=== PATIENT | female | born 1985 | race African-American/Black ===

== ENCOUNTER 2017-06-24 13:34 | Emergency (ER) | payer OTHER ==
[~2017-06-24] VITALS: Ht 167.6 cm; Wt 58.0 kg
[2017-06-24 13:41] VITALS: Ht 167.6 cm; Wt 58.0 kg
[2017-06-24] MEDS ORDERED: ACETAMINOPHEN 325 MG TAB PO STA (15:31)
[2017-06-24 16:13] LABS: BASOPHILS % 0.3 % (0.0-2.0); EOSINOPHILS % 0.5 % (0.0-7.0); HEMATOCRIT 39.1 % (37.0-47.0); HEMOGLOBIN 12.7 g/dl (12.0-16.0); LYMPHOCYTES # 2.3 10^3/ul (0.8-2.9); LYMPHOCYTES % 29.1 % (15.0-51.0); MEAN CORPUSCULAR HEMOGLOBIN 29.3 pg (29.0-33.0); MEAN CORPUSCULAR HGB CONC 32.5 g/dl (32.0-37.0); MEAN CORPUSCULAR VOLUME 90.1 fl (82.0-101.0); MEAN PLATELET VOLUME 12.2 fl (7.4-10.4); MONOCYTE # 0.5 10^3/ul (0.3-0.9); MONOCYTES % 5.8 % (0.0-11.0); NEUTROPHIL # 5.1 10^3/ul (1.6-7.5); NEUTROPHILS % 64.2 % (39.0-77.0); PLATELET COUNT 214 10^3/UL (140-415); RED BLOOD COUNT 4.34 10^6/ul (4.20-5.40); RED CELL DISTRIBUTION WIDTH 12.8 % (11.5-14.5); WHITE BLOOD COUNT 7.9 10^3/ul (4.8-10.8)
[2017-06-24 16:33] LABS: ALBUMIN 4.5 g/dl (3.3-4.9); ALBUMIN/GLOBULIN RATIO 1.12; BILIRUBIN,INDIRECT 0.2 mg/dl (0-1.1); BILIRUBIN,TOTAL 0.2 mg/dl (0.2-1.3); CALCIUM 9.8 mg/dl (8.4-10.2); CREATININE 0.66 mg/dl (0.44-1.00); POTASSIUM 4.6 mmol/L (3.5-5.1); TOTAL PROTEIN 8.5 g/dl (6.1-8.1)
--- NOTE | 2017-06-24 16:47 | RADRPT ---
PROCEDURE: OB Ultrasound. CLINICAL INDICATION: Positive test. Pelvic pain. TECHNIQUE: Ultrasound of the pelvis was performed with transabdominal and transvaginal sonography in the axial and sagittal planes. COMPARISON: No prior study is available for comparison. FINDINGS: There is a single intrauterine gestational sac. pole and yolk sac are present. There is heart motion. heart rate is 132 beats per minute. [place]-rump length is 0.88 cm. Mean sac diameter is 2.22 cm. Menstrual age by ultrasound dates is 7 weeks 0 days. This indicates an expected date of delivery of 02/10/2018. The right ovary is not visualized. The left ovary appears normal measuring 3.5 x 2.4 x 2.6 cm. Color Doppler and pulsed Doppler sonography demonstrate normal flow to the left ovary. An IUD is present in the endometrial canal anteriorly adjacent to the gestational sac. IMPRESSION: 1. Single live intrauterine gestation of 7 weeks 0 days menstrual age by ultrasound dates. 2. Expected date of delivery is 02/10/2018. 3. Right ovary not visualized. 4. IUD in the endometrial canal anteriorly adjacent to the gestational sac. 5. Otherwise unremarkable study. RPTAT: QQ .Jama Hernandez MD, MD Date Time Electronically viewed and signed by .Jama Hernandez MD, on 06/24/2017 16:47 .R/
[2017-06-24 17:18] LABS: ADD UMIC YES; UR ASCORBIC ACID NEGATIVE (NEGATIVE); UR BILIRUBIN (Dip) NEGATIVE (NEGATIVE); UR BLOOD (Dip) NEGATIVE (NEGATIVE); UR CLARITY CLEAR (CLEAR); UR COLOR STRAW (YELLOW); UR GLUCOSE (Dip) NEGATIVE (NEGATIVE); UR KETONES (Dip) NEGATIVE (NEGATIVE); UR LEUKOCYTE ESTERASE (Dip) TRACE Leu/ul (NEGATIVE); UR NITRITE (Dip) NEGATIVE (NEGATIVE); UR RBC 1 /HPF (0-5); UR SPECIFIC GRAVITY (Dip) 1.004 (1.003-1.030); UR TOTAL PROTEIN (Dip) NEGATIVE (NEGATIVE); UR UROBILINOGEN (Dip) NEGATIVE (NEGATIVE)
[2017-06-24] MEDS ORDERED: NITR-58 PO (17:49)
[2017-06-24] MEDS ORDERED: ACET325T33 PO (17:49)
--- NOTE | 2017-06-25 19:41 | ERD ---
ER Documentation Chief Complaint Chief Complaint pt bib family with c/o pelvic pain approx 6 wks preg, pt has IUD HPI Patient is a 31-year-old female who is Ab1 LC 2, last menstrual cycle was May 08, 2017 presenting to the emergency department with complaints of pelvic pain intermittently for the past week. The patient does have an IUD. She has noted vaginal discharge which is clearish in color but no bleeding. Associated symptoms include nausea and back pain. She had an ultrasound approximately 3 days ago which reportedly showed an IUP. She denies any other symptoms currently. ROS All systems reviewed and are negative except as per history of present illness. Medications Home Meds Active Scripts Acetaminophen* (Tylenol*) 325 Mg Tablet, 2 TAB PO Q6 Y for PAIN AND OR ELEVATED TEMP, #20 TAB Prov:NALINI VILLATORO PA-C 06/24/17 Nitrofurantoin Monohyd Macrocr* (Macrobid*) 100 Mg Capsr, 100 MG PO BID for 5 Days, #10 CAP Prov:NALINI VILLATORO PA-C 06/24/17 Allergies Allergies: Coded Allergies: No Known Allergy (Unverified , 06/24/17) PMhx/Soc Medical and Surgical Hx: pt denies Medical Hx, pt denies Surgical Hx Hx Alcohol Use: No Hx Substance Use: No Hx Tobacco Use: No Smoking Status: Never smoker Physical Exam Vitals Vital Signs Date Time Temp Pulse Resp B/P Pulse Ox O2 Delivery O2 Flow Rate FiO2 06/24/17 13:41 98.8 74 16 114/60 100 Physical Exam Const: Nontoxic, well-appearing female in no acute distress Head: Atraumatic Eyes: Normal Conjunctiva ENT: Normal External Ears, Nose and Mouth. Neck: Full range of motion..~ No meningismus. Resp: Clear to auscultation bilaterally Cardio: Regular rate and rhythm, no murmurs Abd: Gravid abdomen, soft, non tender, non distended. Normal bowel sounds. There is mild suprapubic tenderness to palpation noted bilaterally, worse on the right. Skin: No petechiae or rashes Back: No midline or flank tenderness Ext: No cyanosis, or edema Neur: Awake and alert Psych: Normal Mood and Affect Result Diagram: 06/24/17 1600 06/24/17 1600 Results 24 hrs Laboratory Tests Test 06/24/17 16:00 White Blood Count 7.910^3/ul Red Blood Count 4.3410^6/ul Hemoglobin 12.7g/dl Hematocrit 39.1% Mean Corpuscular Volume 90.1fl Mean Corpuscular Hemoglobin 29.3pg Mean Corpuscular Hemoglobin Concent 32.5g/dl Red Cell Distribution Width 12.8% Platelet Count 72611^3/UL Mean Platelet Volume 12.2fl Neutrophils % 64.2% Lymphocytes % 29.1% Monocytes % 5.8% Eosinophils % 0.5% Basophils % 0.3% Nucleated Red Blood Cells % 0.0/100WBC Neutrophils # 5.110^3/ul Lymphocytes # 2.310^3/ul Monocytes # 0.510^3/ul Eosinophils # 0.010^3/ul Basophils # 0.010^3/ul Nucleated Red Blood Cells # 0.010^3/ul Urine Color STRAW Urine Clarity CLEAR Urine pH 6.0 Urine Specific [place] 1.004 Urine Ketones NEGATIVEmg/dL Urine Nitrite NEGATIVEmg/dL Urine Bilirubin NEGATIVEmg/dL Urine Urobilinogen NEGATIVEmg/dL Urine Leukocyte Esterase TRACELeu/ul Urine Microscopic RBC 1/HPF Urine Microscopic WBC 0/HPF Urine Hemoglobin NEGATIVEmg/dL Urine Glucose NEGATIVEmg/dL Urine Total Protein NEGATIVEmg/dl Sodium Level 137mmol/L Potassium Level 4.6mmol/L Chloride Level 104mmol/L Carbon Dioxide Level 23mmol/L Anion Gap 15 Blood Urea Nitrogen 8mg/dl Creatinine 0.66mg/dl Glucose Level 74mg/dl Calcium Level 9.8mg/dl Total Bilirubin 0.2mg/dl Direct Bilirubin 0.00mg/dl Indirect Bilirubin 0.2mg/dl Aspartate Amino Transf (AST/SGOT) 19IU/L Alanine Aminotransferase (ALT/SGPT) 31IU/L Alkaline Phosphatase 52IU/L Total Protein 8.5g/dl Albumin 4.5g/dl Globulin 4.00g/dl Albumin/Globulin Ratio 1.12 Beta HCG, Quantitative 89397.0mIU/ml Current Medications Medications (Trade) Dose Ordered Sig/Elana Route PRN Reason Start Time Stop Time Status Last Admin Dose Admin Acetaminophen (Tylenol Tab) 650 mg ONCE STAT PO 06/24/17 15:31 06/24/17 15:33 DC 06/24/17 15:49 Procedures/MDM 31-year-old female presenting to the emergency department with complaints of suprapubic and pelvic pain. The patient is reportedly 6 weeks currently. The patient is given Tylenol p.o. in the department. She is feeling improved prior to discharge. Laboratory analysis showed no evidence of leukocytosis or anemia on CBC. Chemistry panel showed no significant acute abnormalities. [place] 55692, consistent with term of urinalysis showed trace leukocytes, and urinary tract infection may be a source of the patient's pain. Ultrasound of the pelvis was performed with transabdominal and transvaginal sonography in the axial and sagittal planes which yielded a single live intrauterine gestation of 7 weeks 0 days menstrual age by ultrasound dates. Right ovary not visualized. There was the IUD present in the endometrial canal anteriorly adjacent to the gestational sac, otherwise unremarkable study. After workup in the department and with improvement of the patient's pelvic symptoms, she was stable for discharge with close follow-up with her OBGYN physician. I shared my medical decision making with the patient and she was in agreement. Low suspicion for ectopic , ovarian torsion, tubo-ovarian abscess, sepsis, or other emergent conditions. I discussed this case with attending physician, Dr. Marline Navas, who is in agreement with the overall ED course. The patient was advised to return immediately for any new or worsening symptoms and she is advised to follow-up with her primary care physician and [employer] REPAIR TECHNICIAN physician within 1-2 days. Sooner if symptoms worsen. Impression: Pelvic pain, getting Secondary impression: Urinary tract infection, the patient was given prescription for acetaminophen and Macrobid. PROCEDURE: OB Ultrasound. CLINICAL INDICATION: Positive test. Pelvic pain. TECHNIQUE: Ultrasound of the pelvis was performed with transabdominal and transvaginal sonography in the axial and sagittal planes. COMPARISON: No prior study is available for comparison. FINDINGS: There is a single intrauterine gestational sac. pole and yolk sac are present. There is heart motion. heart rate is 132 beats per minute. [place]-rump length is 0.88 cm. Mean sac diameter is 2.22 cm. Menstrual age by ultrasound dates is 7 weeks 0 days. This indicates an expected date of delivery of 02/10/2018. The right ovary is not visualized. The left ovary appears normal measuring 3.5 x 2.4 x 2.6 cm. Color Doppler and pulsed Doppler sonography demonstrate normal flow to the left ovary. An IUD is present in the endometrial canal anteriorly adjacent to the gestational sac. IMPRESSION: 1. Single live intrauterine gestation of 7 weeks 0 days menstrual age by ultrasound dates. 2. Expected date of delivery is 02/10/2018. 3. Right ovary not visualized. 4. IUD in the endometrial canal anteriorly adjacent to the gestational sac. 5. Otherwise unremarkable study. RPTAT: QQ .Jama Hernandez MD, MD Date Time Electronically viewed and signed by .Jama Hernandez MD, on 06/24/2017 16:47 . Departure Diagnosis: Primary Impression: Pelvic pain complicating Trimester: first trimester Qualified Code: O26.891 - Pelvic pain affecting in first trimester, antepartum Additional Impression: Urinary tract infection Urinary tract infection type: acute cystitis Hematuria presence: without hematuria Qualified Code: N30.00 - Acute cystitis without hematuria Condition: Fair Patient Instructions: Urinary Tract Infections in Women, Pelvic Pain, Unknown Cause Referrals: [facility]PA[facility] TECHNICIAN [place] [id number] [phone] OFFICE [address] [facility] [address] [place] [place] [phone] [facility] [address] [place] [place] [phone] [facility]NANDES [facility] [address] [facility] [address] [id number] [address] [place], [place] [phone] [facility] [address] [place], [place] [address] [address] [facility] [id number] - LYNNE MENDEZ [address], [facility] [address] [address] ARMENTA, MELA [address] [facility]. [address], [facility] [address] [address] [address] [place] [address] Additional Instructions: Follow-up with [facility] [employer] REPA[employer] TECHNICIAN physician within 1-2 days. Follow up with your PCP within the next 1-3 days for a repeat evaluation. If you require a referral to a specialist, your Primary Care Provider may be able to provide this for you. In most patient cases, a referral is not required. If you have further questions regarding this matter, please ask your Primary Care Provider. Return the the emergency department immediately if symptoms worsen or change. If you have any questions regarding medications, ask your pharmacist or us before you leave. If any adverse reactions, occur while taking your medications, discontinue the treatment and return to the emergency department immediately. If any new or worsening symptoms, uncontrolled fevers, or other unexplained symptoms occur, return to the emergency department immediately. Take your medications as directed, and complete the entire course of treatment. NALINI VILLATORO PA-C Jun 25, 2017 19:41
== END 2017-06-24 18:16 | disposition home or self-care (01) ==
LOC: FTE 13:34
DX: O26.891 Other specified pregnancy related conditions, first trimester (principal); R10.2 Pelvic and perineal pain; O23.11 Infections of bladder in pregnancy, first trimester; Z3A.01 Less than 8 weeks gestation of pregnancy
CPT/HCPCS: 36415; 76801; 76817; 80053; 81001; 84702; 85025; 86900; 86901; Z7502; Z7610

== ENCOUNTER 2017-08-18 17:34 | Inpatient (IN) | payer OTHER ==
[~2017-08-18] VITALS: Ht 172.7 cm; Wt 69.1 kg
[2017-08-18] VITALS (14 sets, daily range): BP systolic 115–135; BP diastolic 59–77; PULSE 64–86; RESP 14–16; Ht 172.7 cm; Wt 69.1 kg
[~2017-08-18 17:34] MED LIST: ACET325T33 PO; NITR-58 PO
[2017-08-18] MEDS ORDERED: morphine 4 MG/ML VIAL IV STA (20:21)
--- NOTE | 2017-08-18 21:02 | ERD ---
ER Documentation Chief Complaint Chief Complaint Complains of vag bleed and 12 weeks HPI 31-year-old female currently 14 weeks by ultrasound 5 days ago presents with a chief complaint of vaginal bleeding with clots 18 hours. No previous similar symptoms. Denies discharge or foul odor. Patient had IUD and when she got . Denies alcohol use or drug abuse. No allergies. No complications except for the IUD to this point with the . One spontaneous in the past. Rates pain 6/10. Denies fever, chills, swelling, trauma. Patient has no other complaints and describes no other associated manifestations. Nursing notes have been reviewed and are consistent with history given. ROS All systems reviewed and are negative except as per history of present illness. Medications Home Meds Active Scripts Acetaminophen* (Tylenol*) 325 Mg Tablet, 2 TAB PO Q6 Y for PAIN AND OR ELEVATED TEMP, #20 TAB Prov:NALINI VILLATORO PA-C 06/24/17 Nitrofurantoin Monohyd Macrocr* (Macrobid*) 100 Mg Capsr, 100 MG PO BID for 5 Days, #10 CAP Prov:NALINI VILLATORO PA-C 06/24/17 Allergies Allergies: Coded Allergies: No Known Allergy (Unverified , 06/24/17) PMhx/Soc Medical and Surgical Hx: pt denies Medical Hx, pt denies Surgical Hx Hx Alcohol Use: No Hx Substance Use: No Hx Tobacco Use: No Smoking Status: Never smoker Physical Exam Vitals Vital Signs Date Time Temp Pulse Resp B/P Pulse Ox O2 Delivery O2 Flow Rate FiO2 08/18/17 17:39 98.5 94 20 127/71 98 Physical Exam Const: Well-appearing 31-year-old female in no acute distress. Head: Atraumatic Eyes: Normal Conjunctiva ENT: Normal External Ears, Nose and Mouth. Neck: Full range of motion..~ No meningismus. Resp: Clear to auscultation bilaterally Cardio: Regular rate and rhythm, no murmurs Abd: Mild distention. Soft, non tender. Normal bowel sounds Skin: No petechiae or rashes Back: No midline or flank tenderness Ext: No cyanosis, or edema Neur: Awake and alert Psych: Normal Mood and Affect Rep: Mild pelvic tenderness. Speculum exam revealed passage of fetus with umbilical cord of blood clots. No rash. Results 24 hrs Current Medications Medications (Trade) Dose Ordered Sig/Elana Route PRN Reason Start Time Stop Time Status Last Admin Dose Admin Morphine Sulfate (morphine) 3 mg ONCE STAT IV 08/18/17 20:21 08/18/17 20:22 DC Procedures/MDM Otherwise healthy 31-year-old female presents 14 weeks with chief complaint of bleeding with clots. Umbilical cord visualized on physical examination with products of conception being passed. Mild tenderness palpation of the pelvic area. No masses palpated. Ultrasound was read by the radiologist given the following impression: FINANCIAL REPORTING ACCOUNTANT was consulted. Dr. Romero evaluated the patient herself and has decided OR is appropriate at this time. Most likely diagnosis at this time is incomplete . I have no concern for SBI or N/V compromise at this time. Patient is currently stable and will be transferred into Dr. Romero's care. Departure Diagnosis: Primary Impression: Spontaneous Additional Impression: Incomplete Additional Instructions: Patient is being transferred and to Dr. Romero's care for admission. BALJEET MAHER PA-C Aug 18, 2017 21:02
[2017-08-18 21:18] LABS: BASOPHILS % 0.2 % (0.0-2.0); HEMATOCRIT 32.9 % (37.0-47.0); HEMOGLOBIN 11.3 g/dl (12.0-16.0); LYMPHOCYTES # 0.9 10^3/ul (0.8-2.9); LYMPHOCYTES % 5.7 % (15.0-51.0); MEAN CORPUSCULAR HEMOGLOBIN 30.1 pg (29.0-33.0); MEAN CORPUSCULAR HGB CONC 34.3 g/dl (32.0-37.0); MEAN CORPUSCULAR VOLUME 87.7 fl (82.0-101.0); MEAN PLATELET VOLUME 12.2 fl (7.4-10.4); MONOCYTE # 0.7 10^3/ul (0.3-0.9); MONOCYTES % 4.7 % (0.0-11.0); NEUTROPHIL # 13.9 10^3/ul (1.6-7.5); NEUTROPHILS % 89.1 % (39.0-77.0); PLATELET COUNT 175 10^3/UL (140-415); RED BLOOD COUNT 3.75 10^6/ul (4.20-5.40); RED CELL DISTRIBUTION WIDTH 12.9 % (11.5-14.5); WHITE BLOOD COUNT 15.6 10^3/ul (4.8-10.8)
--- NOTE | 2017-08-18 21:25 | RADRPT ---
PROCEDURE: US OB. CLINICAL INDICATION: Vaginal bleeding. Spontaneous . TECHNIQUE: Transabdominal and transvaginal sonographic evaluation of the pelvis using larson scale an d color Doppler imaging was performed. COMPARISON: Ultrasound dated 08/14/2017. FINDINGS: No intrauterine is identified. There is an intrauterine device in place within the lower u terine segment. The endometrium is thickened measuring 3 cm. There are heterogeneous, vascular samuel nts within the endometrial canal, suggestive of retained products of conception. Uterus: 14.5 x 9.4 x 9.4 cm Right ovary: Not identified. Left ovary: 4.2 x 2.6 x 2.2 cm. Normal flow and echogenicity IMPRESSION: 1. No intrauterine is identified, consistent with the patient's history of recent spontan eous . 2. Thickened endometrium with heterogeneous, vascular contents within the endometrial canal, sugges tive of retained products of conception. 3. Intrauterine device in place within the lower uterine segment. RPTAT: HLBP .Faizan Arriaga MD, Date Time Electronically viewed and signed by .Faizan Arriaga MD, MD on 08/18/2017 21:25 .P/
[2017-08-18 21:34] LABS: INR 1.12; PROTIME 14.6 Sec (11.9-14.9); PT RATIO 1.1
[2017-08-18 21:35] LABS: PARTIAL THROMBOPLASTIN TIME 27.3 Sec (25.0-35.0)
[2017-08-18] MEDS ORDERED: PROPOFOL 20 ML ONE (21:54)
[2017-08-18] MEDS ORDERED: MIDAZOLAM 1 MG/ML 2 ML INJ ONE (21:54)
[2017-08-18] MEDS ORDERED: LIDOCAINE 2% (SDV) 5 ML INJ ONE (21:54)
[2017-08-18] MEDS ORDERED: SUCCINYLCHOLINE CHLORIDE 100 MG/5 ML SYG IV ONE (21:55)
[2017-08-18] MEDS ORDERED: FENTAnyl 50 MCG/ML VIAL IV PRN (22:00)
[2017-08-18] MEDS ORDERED: HYDROmorphONE (0.2 MG/ML) 10ML SYG IV PRN (22:00)
[2017-08-18] MEDS ORDERED: ONDANSETRON 4 MG INJ IV PRN (22:00)
[2017-08-18] MEDS ORDERED: DEXAMETHASONE 4 MG/ML 1 ML INJ ONE (22:03)
[2017-08-18] MEDS ORDERED: ONDANSETRON 4 MG INJ ONE (22:03)
[2017-08-18] MEDS ORDERED: FAMOTIDINE 20 MG INJ ONE (22:03)
[2017-08-18] MEDS ORDERED: FENTAnyl 50 MCG/ML VIAL ONE (22:09)
[2017-08-18] MEDS ORDERED: OXYTOCIN 10 UNIT INJ ONE (22:11)
[2017-08-18] MEDS ORDERED: MEPERIDINE 25 MG INJ IV PRN (23:00)
[2017-08-18] MEDS ORDERED: DIPHENHYDRAMINE 50 MG INJ IV PRN (23:00)
--- NOTE | 2017-08-18 23:16 | SIPON ---
Date/Time of Note Date/Time of Note DATE: 08/18/17 TIME: 23:13 Operative Report Preoperative Diagnosis retained placenta IUD in utero Postoperative Diagnosis same as above Operation/Procedure Performed suction curettage removal of IUD Surgeon see signature line assistant project manager MT Anesthesia: general Estimated blood loss: 150 - 200 ml's Transfusion Required none Specimen placental tissue IUD Grafts/Implants none Complications none MARIIA SORTO MD Aug 18, 2017 23:16
--- NOTE | 2017-08-18 23:20 | PD.PPDC ---
CIGAR MAKING SUPERVISOR Discharge Instruction Diagnosis Final Diagnosis: s/p suction curettage for retained placenta, removal of IUD Condition Patient Condition: Stable Diet Diet: Resume Regular Diet Activity/Restrictions Activity: May Shower Restrictions: No Sexual Activity Nothing in the Vagina No Eva No Tampons, douche Follow-up Follow-up with Physician: 2, Week/Weeks Return to clinic for ROOM SERVER Instructions: Fever greater than 101 Chills Worsening abdominal pain Excessive Vaginal Bleeding More than 2 pads per hour Unable to tolerate diet MARIIA SORTO MD Aug 18, 2017 23:20
[2017-08-19] VITALS: BP 121/65; PULSE 64; RESP 15
[2017-08-19 00:05] VITALS: BP 122/63; PULSE 66; RESP 24
[2017-08-19 02:00] VITALS: BP 99/51; RESP 20
[2017-08-19 06:44] LABS: HEMATOCRIT 25.9 % (37.0-47.0); MEAN CORPUSCULAR HEMOGLOBIN 30.7 pg (29.0-33.0); MEAN CORPUSCULAR HGB CONC 34.7 g/dl (32.0-37.0); MEAN CORPUSCULAR VOLUME 88.4 fl (82.0-101.0); MEAN PLATELET VOLUME 12.9 fl (7.4-10.4); PLATELET COUNT 167 10^3/UL (140-415); RED BLOOD COUNT 2.93 10^6/ul (4.20-5.40); WHITE BLOOD COUNT 12.8 10^3/ul (4.8-10.8)
[2017-08-19 07:06] LABS: POSITIVE DIFF @See below
[2017-08-19 08:08] VITALS: BP 109/55; RESP 18
[2017-08-19 10:03] LABS: ANISOCYTOSIS 1+ (0-0); GIANT THROMBO% (M) 2 % (0-0); MONOCYTES % (M) 3 % (0-11); PLATELET ESTIMATE NORMAL; POIKILOCYTOSIS 1+ (0-0); POLYCHROMASIA 1+ (0-0)
[2017-08-19 13:50] VITALS: BP 107/58; RESP 18
--- NOTE | 2017-08-20 13:36 | DS ---
Date/Time of Note Date/Time of Note DATE: 08/20/17 TIME: 13:28 Discharge Summary Admission/Discharge Info Admit Date/Time August 19, 2017 Discharge summary This patient is a 31 years old, who was admitted through the emergency room on August 18, 2017 due to vaginal bleeding and evidence of a spontaneous . Here is a portion of the admission notes in the emergency room: ( 31-year-old female currently 14 weeks by ultrasound 5 days ago presents with a chief complaint of vaginal bleeding with clots 18 hours. No previous similar symptoms. Denies discharge or foul odor. Patient had IUD and when she got . Denies alcohol use or drug abuse. No allergies. No complications except for the IUD to this point with the . One spontaneous in the past. Rates pain 6/10. Denies fever, chills, swelling, trauma. Patient has no other complaints and describes no other associated manifestations.). . . Patient subsequently underwent a dilatation and curettage. The IUD was removed during this D&C. Post surgery she was doing well and is was afebrile Discharge Date/Time Aug 19, 2017 at 14:50 Patient Condition: Good Consults Current Medications Medications (Trade) Dose Ordered Sig/Elana Route PRN Reason Start Time Stop Time Status Last Admin Dose Admin Morphine Sulfate (morphine) 3 mg ONCE STAT IV 08/18/17 20:21 08/18/17 20:22 DC 08/18/17 20:20 Hydromorphone HCl (Dilaudid (Rec)) 0.4 mg PACU ORDER PRN IV PAIN 08/18/17 22:00 08/19/17 03:00 DC Fentanyl (Sublimaze) 25 mcg PACU ORDER PRN IV PAIN 08/18/17 22:00 08/19/17 03:00 DC Ondansetron HCl (Zofran Inj) 4 mg PACU ORDER PRN IV NAUSEA AND/OR VOMITING 08/18/17 22:00 08/19/17 03:00 DC Meperidine HCl (Demerol) 25 mg PACU ORDER PRN IV POST-OP RIGORS 08/18/17 23:00 08/19/17 03:00 DC Diphenhydramine HCl (Benadryl) 25 mg PACU ORDER PRN IV PRURITUS 08/18/17 23:00 08/19/17 03:00 DC Procedures Dilatation and curettage for incomplete Hx of Present Illness As above Hospital Course See note above Home Meds Active Scripts Acetaminophen* (Tylenol*) 325 Mg Tablet, 2 TAB PO Q6 Y for PAIN AND OR ELEVATED TEMP, #20 TAB Prov:NALINI VILLATORO PA-C 06/24/17 Nitrofurantoin Monohyd Macrocr* (Macrobid*) 100 Mg Capsr, 100 MG PO BID for 5 Days, #10 CAP Prov:NALINI VILLATORO PA-C 06/24/17 Follow-up Plan To have follow-up visit with her rfid technician Primary Care Provider Shannon Nicholas Time spent on discharge: < 30 minutes JESUS FERNANDES MD Aug 20, 2017 13:36
--- NOTE | 2017-08-23 06:56 | OPR ---
DATE OF OPERATION: 08/18/2017 TIME: Around 2100 through the emergency room. She was diagnosed with retained placenta at 14 weeks of miscarriage. PREOPERATIVE DIAGNOSIS: , status post spontaneous at 14 weeks, retained placental cord attached. POSTOPERATIVE DIAGNOSIS: , status post spontaneous at 14 weeks, retained placenta l cord attached. PROCEDURE: Suction curettage. ANESTHESIA: General. ANESTHESIOLOGIST: Dr. Braden SURGEON: Raven Romero MD DESCRIPTION OF PROCEDURE: Under proper induction of general anesthesia, the patient was placed in t he dorsolithotomy position. Perineal area and vagina wall were prepped and draped in usual aseptic manner. On inspection, the small fetus was attached to the very thin umbilical cord and hanging on the peritoneum, which was cut and a weighted speculum was introduced and cervix was wide open. Ante rior lip of cervix was grasped with ring forceps, and another packing forceps used to remove the raquel centa, which was removed, followed by a sharp curettage with abundant tissue coming out at this poin t, size 12 suction curet was introduced and the entire uterine cavity was suctioned in all direction s with obtaining a large amount of retained tissue. This was followed by sharp curettage until the uterine cavity was completely empty. Ten units of Pitocin was given through the IV. Estimated bloo d loss approximately 200 mL. The patient withstood procedure well, sent to the recovery room in sta ble condition. After the procedure, all the instruments had been removed from the operative field. Pelvic examination was done. The uterus was felt to be firm in consistency, but it is a firmer rui n usual consistency, and suggesting possible uterine fibroid which will be followed as outpatient af ter of pelvic organ is done. Sponge count correct, and the final needle count correct, instru ment count correct. The patient was sent to recovery room in stable condition. Dictated By: RAVEN SALEH/DOLLY Conf#: [id number] DID#: [id number]
== END 2017-08-19 14:50 | disposition home or self-care (01) | DRG 770 ==
LOC: FTE 17:34 → MS2 23:56
PROVIDERS: ADMIT Obstetrics & Gynecology; ATTEND Obstetrics & Gynecology
PROC: 10D17ZZ Extraction of Products of Conception, Retained, Via Natural or Artificial Opening (ICD-10-PCS; principal; 2017-08-18 21:30)
DX: O03.4 Incomplete spontaneous abortion without complication (principal)
CPT/HCPCS: 76801; 84702; 85025; 85610; 85730; 86900; 86901; 88305; J1100; J2250; J2270; J2405; J2590; J3010